=== PATIENT | female | born 1975 | race Caucasian/White ===

== ENCOUNTER 2022-04-19 10:57 | Emergency (ER) | payer SELFPAY ==
[~2022-04-19] VITALS: Ht 160 cm; Wt 77.1 kg
[2022-04-19 10:59] VITALS: BP 126/76
[2022-04-19] MEDS ORDERED: IBUP-2213 PO (12:14)
--- NOTE | 2022-04-19 13:10 | NUR ---
Patient discharged with v/s stable. Written and verbal after care instructions ABOUT CONTUSION given and explained. Patient alert, oriented and verbalized understanding of instructions. Ambulatory with steady gait. All questions addressed prior to discharge. ID band removed. Patient advised to follow up with PMD. Rx of MOTRIN given. Patient educated on indication of medication including possible reaction and side effects. Opportunity to ask questions provided and answered.
== END 2022-04-19 13:10 | disposition home or self-care (01) ==
LOC: MED 10:57
DX: S60.011A Contusion of right thumb without damage to nail, initial encounter (principal); E11.9 Type 2 diabetes mellitus without complications; F20.9 Schizophrenia, unspecified; Z79.899 Other long term (current) drug therapy; F32.9 Major depressive disorder, single episode, unspecified; X58.XXXA Exposure to other specified factors, initial encounter; Y93.89 Activity, other specified; Y92.89 Other specified places as the place of occurrence of the external cause; Y99.8 Other external cause status
CPT/HCPCS: 99282

== ENCOUNTER 2022-04-23 14:47 | Emergency (ER) | payer OTHER, MEDICAID ==
[~2022-04-23] VITALS: Ht 165.1 cm; Wt 81.6 kg
[2022-04-23 14:47] VITALS: BP 112/68
[~2022-04-23 14:47] MED LIST: IBUP-2213 PO
[2022-04-23] MEDS ORDERED: FLUORESCEIN OPTH STRIP 1 MG OP ONE (15:35)
[2022-04-23] MEDS ORDERED: TETRACAINE HCL/PF 0.5% OPTH 4 ML BTL OP ONE (15:35)
[2022-04-23] MEDS ORDERED: CIPR2.5D RIGHT EYE (16:45)
[2022-04-23] MEDS ORDERED: LOTC TP (16:45)
[2022-04-23] MEDS ORDERED: IBUP-2213 PO (16:45)
[2022-04-23 17:25] VITALS: BP 116/72
--- NOTE | 2022-04-23 17:28 | NUR ---
46 Y/O FEMALE BIBA FROM [facility] C/O RASH TO ABD X22 YRS. PETECHIAE LIKE RASH NOTED. PATIENT ALSO C/O R EYE DISCOMFORT, 7/10, BURNING/CONSTANT, NON-RADIATING PAIN. PT ALSO HAS REDNESS/ DISCHARGE TO R EYE. PT STATES RASH TO LOW PELVIC CHRONIC TO SELF. DENIES OTC MEDS PRIOR TO ARRIVAL. DENIES BLURRY VISION, FEVER, CHILLS, DIZZINESS, HEADACHE. PMH:BIPOLAR, SCHIZPHRENIA, DM MEDS: DENIES NKDA
--- NOTE | 2022-04-23 17:28 | NUR ---
Patient discharged with v/s stable. Written and verbal after care instructions given and explained for conreal abrasion, body ringworm, subconjunctival hemorrhage Patient alert, oriented and verbalized understanding of instructions. Ambulatory with steady gait. All questions addressed prior to discharge. ID band removed. Patient advised to follow up with PMD. Rx of ciprofloxacin hcl 2.5ml, ibuprofen, lotrimin 1% given. Patient educated on indication of medication including possible reaction and side effects. Opportunity to ask questions provided and answered.
[2022-04-24] MEDS ORDERED: ACET-10509 PO (05:44)
[2022-04-24] MEDS ORDERED: BACI1PAC6 TP (05:44)
== END 2022-04-23 17:28 | disposition home or self-care (01) ==
LOC: MED 14:47
DX: S05.01XA Injury of conjunctiva and corneal abrasion without foreign body, right eye, initial encounter (principal); B35.4 Tinea corporis; E11.9 Type 2 diabetes mellitus without complications; Z79.899 Other long term (current) drug therapy; X58.XXXA Exposure to other specified factors, initial encounter; Y93.89 Activity, other specified; Y92.89 Other specified places as the place of occurrence of the external cause; Y99.8 Other external cause status
CPT/HCPCS: 99283

== ENCOUNTER 2022-04-23 17:48 | Emergency (ER) | payer OTHER, MEDICAID ==
[~2022-04-23 17:48] MED LIST changes: +CIPR2.5D RIGHT EYE; +LOTC TP
--- NOTE | 2022-04-23 19:35 | NUR ---
Called no show in lobby or outside.
--- NOTE | 2022-04-23 19:40 | NUR ---
Patient left prior triage.
[2022-04-24] MEDS ORDERED: ACET-10509 PO (05:44)
[2022-04-24] MEDS ORDERED: BACI1PAC6 TP (05:44)
== END 2022-04-23 19:35 | disposition left against medical advice (07) ==
LOC: MED 17:48
DX: T14.90XA Injury, unspecified, initial encounter (principal); Z53.21 Procedure and treatment not carried out due to patient leaving prior to being seen by health care provider; X58.XXXA Exposure to other specified factors, initial encounter; Y93.89 Activity, other specified; Y92.89 Other specified places as the place of occurrence of the external cause; Y99.8 Other external cause status

== ENCOUNTER 2022-04-24 03:14 | Emergency (ER) | payer OTHER, MEDICAID ==
[~2022-04-24] VITALS: Ht 165.1 cm; Wt 81.6 kg
[2022-04-24 03:19] VITALS: BP 143/90
--- NOTE | 2022-04-24 05:36 | NUR ---
PT TAKEN TO BED 7
--- NOTE | 2022-04-24 05:37 | NUR ---
Dr. Lara examining patient.
[2022-04-24] MEDS ORDERED: ACET-10509 PO (05:44)
[2022-04-24] MEDS ORDERED: BACI1PAC6 TP (05:44)
[2022-04-24 06:33] VITALS: BP 137/76
--- NOTE | 2022-04-24 06:35 | NUR ---
Patient discharged with v/s stable. Written and verbal after care instructions given and explained. Patient alert, oriented and verbalized understanding of instructions. Ambulatory with steady gait. All questions addressed prior to discharge. ID band removed. Patient advised to follow up with PMD. Rx of TYLENOL ES AND BACITRACIN ZINC given. Patient educated on indication of medication including possible reaction and side effects. Opportunity to ask questions provided and answered.
== END 2022-04-24 06:35 | disposition home or self-care (01) ==
LOC: MED 03:14
DX: S90.822A Blister (nonthermal), left foot, initial encounter (principal); S90.821A Blister (nonthermal), right foot, initial encounter; E11.9 Type 2 diabetes mellitus without complications; Z79.1 Long term (current) use of non-steroidal anti-inflammatories (NSAID); Z79.899 Other long term (current) drug therapy; Z79.2 Long term (current) use of antibiotics; X58.XXXA Exposure to other specified factors, initial encounter; Y92.89 Other specified places as the place of occurrence of the external cause; Y93.89 Activity, other specified; Y99.8 Other external cause status
CPT/HCPCS: 99282